=== PATIENT | female | born 1975 ===

== ENCOUNTER 2023-07-26 10:35 | Outpatient (CLI) | payer OTHER ==
[2023-07-26 11:33] LABS: HEMATOCRIT 41.1 % (36.0-45.00); HEMOGLOBIN 13.7 g/dL (12.0-15.00); MEAN CELL VOLUME 87.4 fL (80.00-100.00); MEAN CORPUSCULAR HEMOGLOBIN 29.1 pg (27.00-32.0); MEAN CORPUSCULAR HGB CONC 33.3 g/dl (32.0-36.0); PLATELET COUNT 313 K/uL (150-450); RED CELL DISTRIBUTION WIDTH 13.8 % (11.5-14.5)
[2023-07-26 12:16] LABS: PH,URINE 6.5 (5.0-8.0); URINE APPEARANCE Clear; URINE BILIRRUBIN Negative (NEGATIVE); URINE BLOOD Negative; URINE COLOR Yellow; URINE GLUCOSE Negative (NEGATIVE); URINE LEUKOCYTE Negative; URINE NITRATE Negative; URINE PROTEIN Negative (NEGATIVE); URINE UROBILINOGEN 0.2 E.U./dl
[2023-07-26 12:17] LABS: URINE BACTERIA 104.5 uL (0.0-1933); URINE EPITHELIAL CELLS 2.1 uL (0.0-38.8)
[2023-07-26 12:30] LABS: URINE RBC 1.4 uL (0.0-20.8); URINE WBC 0.9 uL (0.0-23.2)
[2023-07-26 12:46] LABS: ALBUMIN 4.1 gm/dL (3.4-5.0); BILIRUBIN TOTAL 0.53 mg/dL (0.3-1.2); CALCIUM 9.2 mg/dL (8.5-10.1); CHOL HDL RATIO 2.7 (0-5.0); CREATININE SERUM 0.61 mg/dL (0.55-1.02); GFR 103.82; GLOBULINA 3.6 G/DL (2.4-3.5); POTASSIUM 4.14 mEq/L (3.5-5.1); TOTAL PROTEIN 7.7 gm/dL (6.4-8.2); TSH 1.14 uIU/mL (0.358-3.74)
== END 2023-07-26 10:36 | disposition home or self-care (01) ==
LOC: LAB 10:35
DX: Z13.0 Encounter for screening for diseases of the blood and blood-forming organs and certain disorders involving the immune mechanism (principal)

== ENCOUNTER 2023-07-26 10:53 | Outpatient (CLI) | payer OTHER | END 2023-07-26 10:58 | disposition home or self-care (01) | LOC: MAMO-SONO 10:53 | DX: R10.2 Pelvic and perineal pain (principal); Z12.31 Encounter for screening mammogram for malignant neoplasm of breast ==

== ENCOUNTER 2025-01-14 09:33 | Outpatient (CLI) | payer OTHER | END 2025-01-14 09:38 | disposition home or self-care (01) | LOC: SONOGRAMA 09:33 | DX: M65.4 Radial styloid tenosynovitis [de Quervain] (principal) ==

== ENCOUNTER 2025-01-29 13:52 | Outpatient (CLI) | payer OTHER | END 2025-01-29 14:02 | disposition home or self-care (01) | LOC: MAMO-SONO 13:52 | DX: Z12.31 Encounter for screening mammogram for malignant neoplasm of breast (principal); R10.2 Pelvic and perineal pain ==

== ENCOUNTER 2025-02-11 06:55 | Outpatient (CLI) | payer OTHER ==
[2025-02-11 07:54] LABS: BASO % 1.3 % (0.1-1.2); EOS # 0.47 (0.04-0.54); EOS % 6.6 % (0.7-7.0); LYMPH # 2.64 (1.18-3.74); LYMPH % 37.0 % (19.3-53.1); MEAN PLATELET VOLUME 9.40 fl (9.4-12.4); MONO # 0.50 (0.24-0.82); MONO % 7.0 % (4.7-12.5); NEUT # 3.41 (1.56-6.13); NEUT % 47.8 % (34.0-71.1); RED CELL DISTRIBUTION WIDTH 12.5 % (11.6-14.4)
[2025-02-11 08:18] LABS: URINE APPEARANCE Clear; URINE BILIRRUBIN Negative (NEGATIVE); URINE BLOOD Negative; URINE COLOR Yellow; URINE GLUCOSE Negative (NEGATIVE); URINE KETONE Negative (NEGATIVE); URINE LEUKOCYTE Negative; URINE NITRATE Negative; URINE PROTEIN Negative (NEGATIVE); URINE UROBILINOGEN 0.2 E.U./dl
[2025-02-11 08:23] LABS: URINE BACTERIA 692.4 uL (0.0-1933); URINE EPITHELIAL CELLS 10.1 uL (0.0-38.8); URINE RBC 4.2 uL (0.0-20.8); URINE WBC 13.2 uL (0.0-23.2)
[2025-02-11 08:29] LABS: ALT/SGPT 20 U/L (12-78); AST/SGOT 16 U/L (15-37); BILIRUBIN TOTAL 0.35 mg/dL (0.3-1.2); BUN CREA RATIO 22 (7.0-25.0); CHOL HDL RATIO 2.5 (0-5.0); CREATININE SERUM 0.67 mg/dL (0.55-1.02); GFR 92.43; GLOBULINA 3.5 G/DL (2.4-3.5); GLUCOSE FASTING 82 mg/dL (65-100); HDL 73 mg/dl (40-60); LDL 94 mg/dl (0-130); OSMOLALITY SERUM 289 MOSM/KG (275-295); TSH 1.980 uIU/mL (0.358-3.74); VLDL 19 (0-39)
[2025-02-11 08:30] LABS: URINE CAST 0.14 uL (0.0-1.40)
[2025-02-11 11:10] LABS: VITAMIN D3 25 HYDROXY 41.29 ng/ml (30-120)
[2025-02-12 11:08] LABS: PROGESTERONA < 0.1 ng/mL (.)
[2025-02-13 23:07] LABS: ESTROGENO 57 pg/mL (.)
== END 2025-02-11 07:22 | disposition home or self-care (01) ==
LOC: LAB 06:55
DX: E64.9 Sequelae of unspecified nutritional deficiency (principal); R79.89 Other specified abnormal findings of blood chemistry; R30.0 Dysuria; E78.5 Hyperlipidemia, unspecified; I25.10 Atherosclerotic heart disease of native coronary artery without angina pectoris; E07.9 Disorder of thyroid, unspecified; E11.9 Type 2 diabetes mellitus without complications; E29.1 Testicular hypofunction; N95.9 Unspecified menopausal and perimenopausal disorder; D51.9 Vitamin B12 deficiency anemia, unspecified